=== PATIENT | male | born 1960 | race African-American/Black ===

== ENCOUNTER 2016-07-18 10:25 | Day surgery (SDC) | payer OTHER ==
[2016-07-18] VITALS (16 sets, daily range): BP systolic 115–162; BP diastolic 65–88
[~2016-07-18] VITALS: Ht 188 cm; Wt 99.8 kg
--- NOTE | 2016-07-18 07:24 | Pre-Procedure Note/Attestation ---
Pre-Procedure Note/Attestation Complete Prior to Procedure Planned Procedure: right Procedure Narrative: removal hardware hip Indications for Procedure Pre-Operative Diagnosis: painful hardware right hip Attestation I attest that I discussed the nature of the procedure; its benefits; risks and complications; and alternatives (and the risks and benefits of such alternatives ), prior to the procedure, with the patient (or the patient's legal education courses sales representative). I attest that, if there was a reasonable possibility of needing a blood transfusion, the patient (or the patient's legal education courses sales representative) was given the [facility] standardized written summary, pursuant to the Uriah Srinivas Blood Safety Act ([place] Health and Safety Code # 1645, as amended). I attest that I re-evaluated the patient just prior to the surgery and that there has been no change in the patient's H&P, except as documented below: VALERIA MCDUFFIE July 18, 2016 07:24
--- NOTE | 2016-07-18 07:24 | Operative Note - PDOC ---
Operative Note Operative Note Pre-op Diagnosis: painful hardware right hip Procedure: see op report Post-op Diagnosis: same as pre-op plus Operative Findings: consistent w/pre-op dx studies Anesthesia: MAC Specimen: none Complications: none Condition: stable Estimated Blood Loss: none Implant(s) used?: VALERIA Khan July 18, 2016 07:24
[~2016-07-18 10:25] MED LIST: HYDROmorphone 1mg/ml Carpuject SUBQ PRN; Norco 5mg/325mg tab ORAL PRN; Tylenol #3 tab (300mg/30mg) ORAL PRN; ceFAZolin 1gm in D5W 55ml IVP ONE; celeBREX 200mg Cap **SURGERY PATIENTS ONLY ORAL ONE; oxyCONTIN 20mg tab ORAL ONE
[2016-07-18] MEDS ORDERED: ALEVE220 MG PO (11:11)
[2016-07-18] MEDS ORDERED: celeBREX 200mg Cap **SURGERY PATIENTS ONLY ORAL ONE (11:37)
[2016-07-18] MEDS ORDERED: LR 1000ml ONE (13:00)
[2016-07-18] MEDS ORDERED: NS Irrig 1000ml ONE (13:00)
[2016-07-18] MEDS ORDERED: fentaNYL 100 mcg/2 mL IV ONE (13:00)
[2016-07-18] MEDS ORDERED: Sterile Water Irrig 1000ml IRRIG ONE (13:00)
[2016-07-18] MEDS ORDERED: Ketorolac 30mg Inj ONE (13:00)
[2016-07-18] MEDS ORDERED: Midazolam 2mg/2ml Inj ONE (13:00)
[2016-07-18] MEDS ORDERED: Propofol 10mg/ml 20ml IV ONE (13:00)
[2016-07-18] MEDS ORDERED: Bupivacaine w/Epi 0.25% 30ml Vial INJ ONE ×2 (13:22→14:33)
[2016-07-18] MEDS ORDERED: Bacitracin 50000 Units Vial ONE (13:22)
[2016-07-18] MEDS ORDERED: LR 1000ml 1,000 ML IVLG SCH (14:06)
--- NOTE | 2016-07-18 14:06 | Anethesia Preoperative Eval ---
Anesthesia Pre-op PMH/ROS General Date of Evaluation: July 18, 2016 Time of Evaluation: 13:10 Anesthesiologist: Dao ASA Score: ASA 2 Mallampati Score Class I : Soft palate, uvula, fauces, pillars visible Class II: Soft palate, uvula, fauces visible Class III: Soft palate, base of uvula visible Class IV: Only hard plate visible Mallampati Classification: Class II Surgeon: Frederick Diagnosis: Painfull hardwear R hip Surgical Procedure: R hip Hardwear removal Anesthesia History: none Family History: no anesthesia problems Allergies: Coded Allergies: No Known Allergies (Unverified , 07/17/16) Medications: see eMAR Past Medical History Cardiovascular: Denies: CAD, HTN, LA, arrhythmia, other, valve dz Pulmonary: Denies: COPD, ULI, asthma, other Gastrointestinal/Genitourinary: Reports: GERD, Denies: CRI, ESRD, other Neurologic/Psychiatric: Reports: other - chronic pain, Denies: CVA, TIA, dementia, depression/anxiety Endocrine: Denies: DM, hypothyroidism, other, steroids Musculoskeletal/Integumentary: Denies: DDD, DJD, OA, RA, edema, other PMH Narrative: appendectomy R hip ORIF Anesthesia Pre-op Phys. Exam Physician Exam Last Vital Signs Date Time Temp Pulse Resp B/P Pulse Ox O2 Delivery O2 Flow Rate FiO2 07/18/16 11:26 97.9 96 20 133/78 97 Room Air Constitutional: NAD Neurologic: CN 2-12 intact Cardiovascular: RRR, no M/R/G Respiratory: CTA Gastrointestinal: S/NT/ND Airway Exam Mallampati Score: Class II MO: full Neck: flexible ROM: limited Teeth: missing Dentures: no lower, no upper Anesthesia Pre-op A/P Labs see chart Studies Pre-op Studies: EKG - NSR Risk Assessment & Plan Assessment: ASA 2 Plan: GA with LMA Status Change Before Surgery: No Pre-Antibiotics Drug: Ancef 2gr. Given Within 1 Hr of Incision: Yes Time Given: 13:46 SUSAN UMAÑA M.D. July 18, 2016 14:06
[2016-07-18] MEDS ORDERED: Meperidine 25mg/0.5ml Inj IV PRN (14:15)
[2016-07-18] MEDS ORDERED: DiphenhydrAMINE 50mg/ml Inj IVP PRN (14:15)
[2016-07-18] MEDS ORDERED: Ketorolac 30mg Inj IV PRN (14:15)
[2016-07-18] MEDS ORDERED: Hydromorphone 0.5mg/0.5ml inj IVP PRN (14:15)
[2016-07-18] MEDS ORDERED: Midazolam 2mg/2ml Inj IVP PRN (14:15)
--- NOTE | 2016-07-18 15:13 | Immediate Post-Op Evaluation ---
Immediate Post-Op Evalulation Immediate Post-Op Evalulation Procedure: Removal of R hip hardwear Date of Evaluation: July 18, 2016 Time of Evaluation: 15:11 IV Fluids: 1400 Blood Products: none Estimated Blood Loss: 50 Urinary Output: none Blood Pressure Systolic: 115 Blood Pressure Diastolic: 84 Pulse Rate: 72 Respiratory Rate: 20 O2 Sat by Pulse Oximetry: 99 Temperature (Fahrenheit): 97.5 Pain Score (1-10): 2 Nausea: No Vomiting: No Complications none Patient Status: reacts, patent, none SUSAN UMAÑA M.D. July 18, 2016 15:12
--- NOTE | 2016-07-18 15:14 | 48 Hour Post Anesthesia Eval ---
Post Anesthesia Evaluation Procedure: Removal of R hip hardwear Date of Evaluation: July 18, 2016 Time of Evaluation: 16:02 Blood Pressure Systolic: 124 0: 76 Pulse Rate: 82 Respiratory Rate: 20 Temperature (Fahrenheit): 97.6 O2 Sat by Pulse Oximetry: 98 Nausea: No Vomiting: No Pain Intensity: 2 Hydration Status: adequate Cardiopulmonary Status: stable Mental Status/LOC: patient returned to baseline Follow-up Care/Observations: n/a Post-Anesthesia Complications: none Follow-up care needed: ready to discharge SUSAN UMAÑA M.D. July 18, 2016 15:14
[2016-07-18] MEDS ORDERED: D5 1/2NS 1,000 ML IV SCH (20:00)
--- NOTE | 2016-07-18 22:59 | Operative Note - Dictated ---
DATE OF OPERATION: 07/18/2016 PREOPERATIVE DIAGNOSES: 1. Status post open reduction and internal fixation right intertrochanteric hip fracture. 2. Right hip painful hardware. POSTOPERATIVE DIAGNOSES: 1. Status post open reduction and internal fixation right intertrochanteric hip fracture. 2. Right hip painful hardware. PROCEDURES PERFORMED: Removal of right hip hardware and right hip implant (long gamma nail). SURGEON: Channing Mack M.D. ANESTHESIA: General. INDICATION FOR PROCEDURE: The patient is a pleasant 56-year-old gentleman, who sustained the injury to his right hip. He had intertrochanteric hip fracture treated with open reduction and internal fixation. Subsequently, hip pain related to the hardware, he elected to undergo removal of the hardware. Risks, limitations, expectations and complications of the procedure were discussed in detail including continued pain, need for future surgery, risk of anesthesia, medical complications, DVT, PE, and mortality risks. All questions were addressed. DESCRIPTION OF PROCEDURE: An informed consent was obtained. The patient was taken to the operative room and placed under general anesthesia. The patient was then carefully placed in lateral decubitus position. Right hip was prepped and draped in a sterile manner. Previous lateral skin incision was identified and skin was incised. Fascia evelyne was incised. Blunt dissection done to the distal locking screw was performed. Distal locking screw was then removed. At this point, the wound was copiously irrigated. Bone wax was placed along the screw. The fascia evelyne was closed with #1 Vicryl suture. Skin was approximated 2-0 Vicryl suture, and 3-0 Monocryl suture and Dermabond dressing. At this point, the previous lateral hip incision was marked out. The skin was incised. Fascia evelyne was incised. The proximal edge of the greater trocar was well identified. The proximal aspect of the nail was identified pretty easily. The set screw was backed off and removed. At this point, attention was turned to the cannulated screw and it was removed. It was somewhat difficult getting this cannulated screw into position. Therefore, the incision was extended to connect 2 lateral incisions. Once that was done, the lateral cannulated screw was identified. The screw was then placed into this and capturing the cannulated screw, which was then backed off. Once that was done, the gamma nail was hammered out. Once that was done, bone wax. The fascia evelyne was closed with #1 Vicryl suture, 2-0 Vicryl suture, 3-0 Monocryl sutures, and Steri-Strips and a sterile dressing were applied. The patient was awoken and taken to the recovery room with stable vital signs. ESTIMATED BLOOD LOSS: Minimal. COMPLICATIONS: None. SPECIMENS: None. IMPLANT: None. Channing Mack M.D. DR: SONG JOB#: [id number] CC:
== END 2016-07-18 18:45 | disposition home or self-care (01) ==
LOC: SUR 10:25
DX: T84.84XA Pain due to internal orthopedic prosthetic devices, implants and grafts, initial encounter (principal); Y83.8 Other surgical procedures as the cause of abnormal reaction of the patient, or of later complication, without mention of misadventure at the time of the procedure; Y92.009 Unspecified place in unspecified non-institutional (private) residence as the place of occurrence of the external cause; M79.2 Neuralgia and neuritis, unspecified; K21.9 Gastro-esophageal reflux disease without esophagitis; G89.29 Other chronic pain; Z90.49 Acquired absence of other specified parts of digestive tract
CPT/HCPCS: 20680; J0690; J1885; J2250; J2405; J2704; J3010; J7120; 94003; 94150; J2180